=== PATIENT | female | born 1960 | race African-American/Black ===

== ENCOUNTER 2016-07-17 09:42 | Emergency (ER) | payer BC, OTHER | END 2016-07-17 10:23 | disposition home or self-care (01) | LOC: BURERS 09:42 | DX: J11.1 Influenza due to unidentified influenza virus with other respiratory manifestations (principal); I10 Essential (primary) hypertension; F41.9 Anxiety disorder, unspecified; F17.210 Nicotine dependence, cigarettes, uncomplicated; Z79.899 Other long term (current) drug therapy | CPT/HCPCS: 99283 ==

== ENCOUNTER 2019-03-01 21:21 | Emergency (ER) | payer OTHER | END 2019-03-01 21:46 | disposition home or self-care (01) | LOC: BURERS 21:21 | DX: I10 Essential (primary) hypertension (principal); J45.909 Unspecified asthma, uncomplicated; F41.9 Anxiety disorder, unspecified; Z79.899 Other long term (current) drug therapy; Z79.51 Long term (current) use of inhaled steroids | CPT/HCPCS: 99281 ==

== ENCOUNTER 2019-04-25 14:25 | Emergency (ER) | payer OTHER | END 2019-04-25 14:59 | disposition home or self-care (01) | LOC: BURERS 14:25 | DX: I10 Essential (primary) hypertension (principal); J34.89 Other specified disorders of nose and nasal sinuses | CPT/HCPCS: 99283 ==

== ENCOUNTER 2021-08-01 09:46 | Outpatient (CLI) | payer OTHER | END 2021-08-01 09:47 | disposition home or self-care (01) | LOC: BURRAD 09:46 | PROVIDERS: ATTEND Family Medicine | DX: R06.2 Wheezing (principal) | CPT/HCPCS: 71046 ==

== ENCOUNTER 2022-03-22 14:39 | Emergency (ER) | payer OTHER ==
[2022-03-22 15:14] LABS: Bilirubin Negative (Negative); Blood, Urine Negative (Negative); Clarity Clear (Clear); Glucose, Urine (Dipstick) Negative (Negative); Ketone, Urine Negative (Negative); Leukocyte Moderate (Negative); Nitrite Negative (Negative); Protein, Urine (Dipstick) Negative (Neg-Trace); pH, Urine 5.5 (5.0-9.0)
[2022-03-22 15:15] LABS: Specific Gravity, Urine 1.025 (1.002-1.036)
[2022-03-22 15:19] LABS: RBC/HPF 0-3 HPF (0-3)
[2022-03-22 15:20] LABS: Bacteria/HPF Rare-Few HPF (None Seen); Mucous/LPF Rare LPF (<2+)
== END 2022-03-22 15:31 | disposition home or self-care (01) ==
LOC: BURERS 14:39
DX: N30.00 Acute cystitis without hematuria (principal); I10 Essential (primary) hypertension; F17.210 Nicotine dependence, cigarettes, uncomplicated
CPT/HCPCS: 81003; 81015; 87086; 99283

== ENCOUNTER 2022-07-05 15:58 | Outpatient (CLI) | payer OTHER ==
[2022-07-05 16:42] LABS: ALT (SGPT) 16 U/L (8-55); AST (SGOT) 19 U/L (5-34); Albumin 4.4 g/dL (3.4-4.8); Alkaline Phosphatase 84 U/L (40-110); Anion Gap 12 mmol/L (10-20); BUN (Urea Nitrogen) 10 mg/dL (9.8-20.1); Bilirubin, Total 0.2 mg/dL (0.2-1.2); Calc. Creatinine Clearance 0 mL/min (70-130); Calcium 9.5 mg/dL (7.8-10.44); Carbon Dioxide 25 mmol/L (23-31); Chloride 108 mmol/L (98-107); Estimated GFR 83; Globulin 2.8 g/dL (2.4-3.5); Glucose 98 mg/dL (80-115); Potassium 3.8 mmol/L (3.5-5.1); Protein, Total 7.2 g/dL (5.8-8.1); Sodium 141 mmol/L (136-145)
== END 2022-07-05 15:59 | disposition home or self-care (01) ==
LOC: BURLAB 15:58
PROVIDERS: ATTEND Nurse Practitioner Family
DX: M79.661 Pain in right lower leg (principal)
CPT/HCPCS: 36415; 80053; 83735; 85379